=== PATIENT | male | born 1935 | race Caucasian/White ===

== ENCOUNTER → 2017-02-04 | Outpatient (CLI) | payer MEDICARE ==
[~2017-02-04] MED LIST: AMARYL4 MG PO; ANTI-DIARRHEA2 MG PO; ANTIVERT25 MG PO; AQUAPHOR1 OI1 TP; BACTROBAN OINT0.9 GM NAS; Bactroban Oint22 GM T; CALCIUM500 M1 PO; CARTIA XT180 MG PO; CASODEX50 MG PO; CEFUROXIME AXE250 MG PO; CHLORASEPTIC SP20 M1 T; CIPRO500 MG PO; D3-55000 IU PO; DO NOT PROFILE T1 EA DEN; DO NOT PROFILE T1 EA PO; DUONEB 3 MG/3 ML3 M1 NEB; EXELON3 MG PO; EXELON4.6 MG/24 T; EYE DROPS OP; EYE INJECTIONS OP; FLORASTOR250 MG PO; GLYBURIDE AND M1 TA1 PO; GLYBURIDE5 MG PO; HALOPERIDOL1 MG PO; JANUVIA25 MG PO; LANOXIN0.125 MG PO; MEGACE 40400 MG/10 PO; MEGACE40 MG PO; METFORMIN1000 MG PO; METOPROLOL25 MG PO; MIRTAZAPINE15 M2 PO; MULTIPLE VITAMI1 TAB PO; Metformin Hydr500 MG PO; NYSTATIN1 EAC1 MC; NYSTATIN100000 U/M PO; PERCOCET 325 MG1 TA7 PO; PREDNISONE5 MG PO; TYLENOL325 M2 PO; VICODIN ES 7501 TAB PO; XARE20MG PO; XARELTO10 MG PO; ZANTAC 150150 MG PO; ZOFRAN8 M1 PO; ZYPREXA5 M1 PO; [UNRECOGNIZED DRUG - OTHER] TP
== END | disposition home or self-care (01) ==
LOC: LAB 09:56
DX: C61 Malignant neoplasm of prostate (principal)

== ENCOUNTER → 2017-03-04 | Outpatient (CLI) | payer MEDICARE | END | disposition home or self-care (01) | LOC: US 13:15 | DX: N28.1 Cyst of kidney, acquired (principal); K80.20 Calculus of gallbladder without cholecystitis without obstruction; N32.89 Other specified disorders of bladder; N28.9 Disorder of kidney and ureter, unspecified ==

== ENCOUNTER 2017-06-07 19:51 | Emergency (ER) | payer MEDICARE ==
[~2017-06-07] VITALS: Ht 162.5 cm; Wt 72.6 kg
[2017-06-07 20:54] LABS: BASO % 0.5 % (0.0-1.0); EOS # 0.2 10*3/uL (0.0-0.4); EOS % 3.1 % (1.0-4.0); HEMATOCRIT 35.9 % (42.0-52.0); HEMOGLOBIN 12.6 g/dl (14.0-18.0); LYMPH # 3.1 10*3/uL (1.3-4.4); LYMPH % 40.1 % (27.0-41.0); MEAN CELL VOLUME 89.3 fl (80.0-94.0); MEAN CORPUSCULAR HGB 31.3 pg (27.0-31.0); MEAN CORPUSCULAR HGB CONC 35.1 g/dl (33.0-37.0); MEAN PLATELET VOLUME 8.9 fl (9.6-12.3); MONO # 0.7 10*3/uL (0.1-1.0); MONO % 9.2 % (3.0-9.0); NEUT # 3.7 10*3/uL (2.3-7.9); PLATELET COUNT AUTOMATED 227 10*3/uL (130-400); RED BLOOD COUNT 4.02 10*6/uL (4.50-5.90); RED CELL DISTRI WIDTH 13.2 % (0-14.5); WHITE BLOOD COUNT 7.8 10*3/uL (4.8-10.8)
[2017-06-07 21:12] LABS: BUN 32 mg/dl (7-24); CHLORIDE 108 mmol/L (98-107); CREATININE 2.23 mg/dL (0.70-1.30); POTASSIUM 4.6 mmol/L (3.5-5.1); SODIUM 139 mmol/L (136-145)
[2017-06-07 21:17] LABS: TROPONIN I < 0.015 ng/ml (<0.045)
[2017-06-07 21:44] VITALS: BP 137/66
== END 2017-06-07 22:05 | disposition home or self-care (01) ==
LOC: ED 19:51
PROVIDERS: Emergency Medicine Emergency Medical Services
DX: T46.1X1A Poisoning by calcium-channel blockers, accidental (unintentional), initial encounter (principal); Z86.73 Personal history of transient ischemic attack (TIA), and cerebral infarction without residual deficits; Z79.899 Other long term (current) drug therapy; Y92.9 Unspecified place or not applicable

== ENCOUNTER → 2017-09-22 | Outpatient (CLI) | payer MEDICARE | END | disposition home or self-care (01) | LOC: LAB 11:03 | DX: C61 Malignant neoplasm of prostate (principal) ==

== ENCOUNTER → 2018-03-14 | Outpatient (CLI) | payer MEDICARE ==
[2018-03-14 07:31] LABS: BASO % 0.2 % (0.0-1.0); EOS # 0.3 10*3/uL (0.0-0.4); EOS % 3.4 % (1.0-4.0); HEMATOCRIT 39.8 % (42.0-52.0); HEMOGLOBIN 13.5 g/dl (14.0-18.0); LYMPH # 3.1 10*3/uL (1.3-4.4); LYMPH % 37.9 % (27.0-41.0); MEAN CELL VOLUME 93.9 fl (80.0-94.0); MEAN CORPUSCULAR HGB 31.8 pg (27.0-31.0); MEAN CORPUSCULAR HGB CONC 33.9 g/dl (33.0-37.0); MEAN PLATELET VOLUME 9.2 fl (9.6-12.3); MONO # 0.8 10*3/uL (0.1-1.0); MONO % 9.3 % (3.0-9.0); PLATELET COUNT AUTOMATED 272 10*3/uL (130-400); RED BLOOD COUNT 4.24 10*6/uL (4.50-5.90); RED CELL DISTRI WIDTH 13.7 % (0-14.5); WHITE BLOOD COUNT 8.2 10*3/uL (4.8-10.8)
[2018-03-14 08:01] LABS: ALBUMIN 4.3 gm/dl (3.1-4.5); CREATININE 2.46 mg/dL (0.70-1.30); FREE T4 0.92 ng/dl (0.76-1.46); POTASSIUM 4.3 mmol/L (3.5-5.1); TOTAL PROTEIN 8.1 gm/dL (6.4-8.2)
[2018-03-14 08:06] LABS: THYROID STIM HORMONE (HS) 2.54 uIU/ml (0.358-4.75)
[2018-03-14 08:25] LABS: VITAMIN D, 25-HYDROXY 38.8 ng/mL (30-100)
== END | disposition home or self-care (01) ==
LOC: LAB 06:49
PROVIDERS: Internal Medicine
DX: E78.2 Mixed hyperlipidemia (principal); E55.9 Vitamin D deficiency, unspecified; E03.9 Hypothyroidism, unspecified; D52.9 Folate deficiency anemia, unspecified; D51.9 Vitamin B12 deficiency anemia, unspecified; R53.81 Other malaise

== ENCOUNTER → 2018-04-21 | Outpatient (CLI) | payer MEDICARE | END | disposition home or self-care (01) | LOC: LAB 09:46 | DX: C61 Malignant neoplasm of prostate (principal) ==

== ENCOUNTER → 2018-05-12 | Outpatient (CLI) | payer MEDICARE | END | disposition home or self-care (01) | LOC: NM 02:10 | DX: C61 Malignant neoplasm of prostate (principal); N18.9 Chronic kidney disease, unspecified ==

== ENCOUNTER → 2018-06-14 | Outpatient (CLI) | payer MEDICARE | END | disposition home or self-care (01) | LOC: LAB 09:57 | DX: C61 Malignant neoplasm of prostate (principal) ==

== ENCOUNTER → 2018-07-13 | Outpatient (CLI) | payer MEDICARE | END | disposition home or self-care (01) | LOC: LAB 10:47 | DX: Z12.5 Encounter for screening for malignant neoplasm of prostate (principal); C61 Malignant neoplasm of prostate ==

== ENCOUNTER → 2018-08-08 | Outpatient (CLI) | payer MEDICARE | END | disposition home or self-care (01) | LOC: LAB 10:00 | DX: C61 Malignant neoplasm of prostate (principal) ==

== ENCOUNTER → 2018-10-19 | Outpatient (CLI) | payer MEDICARE | END | disposition home or self-care (01) | LOC: LAB 13:00 | DX: C61 Malignant neoplasm of prostate (principal) ==

== ENCOUNTER → 2018-11-08 | Outpatient (CLI) | payer MEDICARE | END | disposition home or self-care (01) | LOC: LAB 11:50 | DX: C61 Malignant neoplasm of prostate (principal) ==

== ENCOUNTER → 2019-04-27 | Outpatient (CLI) | payer MEDICARE | END | disposition home or self-care (01) | LOC: LAB 11:05 | DX: C61 Malignant neoplasm of prostate (principal) ==

== ENCOUNTER 2019-05-31 17:59 | Inpatient (IN) | payer MEDICARE ==
[~2019-05-31] VITALS: Ht 170.2 cm; Wt 75.8 kg
[2019-05-31 18:04] VITALS: BP 131/79
[2019-05-31 18:40] VITALS: BP 135/82
[2019-05-31 18:44] LABS: BASO % 0.5 % (0.0-1.0); EOS # 0.3 10*3/uL (0.0-0.4); EOS % 5.1 % (1.0-4.0); HEMATOCRIT 42.1 % (42.0-52.0); HEMOGLOBIN 14.4 g/dl (14.0-18.0); LYMPH # 1.9 10*3/uL (1.3-4.4); LYMPH % 28.8 % (27.0-41.0); MEAN CELL VOLUME 94.4 fl (80.0-94.0); MEAN CORPUSCULAR HGB 32.3 pg (27.0-31.0); MEAN CORPUSCULAR HGB CONC 34.2 g/dl (33.0-37.0); MEAN PLATELET VOLUME 9.1 fl (9.6-12.3); MONO # 0.9 10*3/uL (0.1-1.0); MONO % 13.5 % (3.0-9.0); NEUT # 3.5 10*3/uL (2.3-7.9); NEUT % 51.8 % (47.0-73.0); PLATELET COUNT AUTOMATED 279 10*3/uL (130-400); RED BLOOD COUNT 4.46 10*6/uL (4.50-5.90); RED CELL DISTRI WIDTH 13.9 % (0-14.5); WHITE BLOOD COUNT 6.7 10*3/uL (4.8-10.8)
[2019-05-31 19:00] LABS: ALKALINE PHOSPHATASE 75 U/L (45-117); BUN 52 mg/dl (7-24); CHLORIDE 107 mmol/L (98-107); CREATININE 2.85 mg/dL (0.70-1.30); POTASSIUM 4.6 mmol/L (3.5-5.1); SGOT/AST 11 IU/L (3-35); SGPT/ALT 13 U/L (12-78); SODIUM 141 mmol/L (136-145); TOTAL PROTEIN 8.4 gm/dL (6.4-8.2)
[2019-05-31 19:01] LABS: TROPONIN I < 0.015 ng/ml (<0.045)
--- NOTE | 2019-05-31 19:02 | NUR ---
LAB CALLED LA 2.3
--- NOTE | 2019-05-31 21:02 | NUR ---
PT RESTING IN BED FAMILY IN ROOM NO DISTRESS NOTED CALL LIGHT IN REACH
[2019-05-31 21:30] VITALS: BP 127/70; BP 135/66
--- NOTE | 2019-05-31 21:30 | NUR ---
Time: 2129 A 84 year old MALE admitted to 5E under services of DR. ADAL NAYAK,DOMINIC Rebollar Pt. arrived via bed from ER. Chief complaint: WEAKNESS. WILIAN JARAMILLO
[2019-05-31] MEDS ORDERED: CHLORPROMAZINE25 M1 PO (21:53)
--- NOTE | 2019-06-01 00:05 | NUR ---
Pts third EKG held at this time. Nurse had just gotten pt to bed and pt tends to have sundowners. Would like pt to rest at this time.
--- NOTE | 2019-06-01 05:43 | NUR ---
NYASIA CHATTERJEE [id number] Please refer to the physician's history and physical for past medical history, comorbid conditions, and allergies. Diagnosis: ACUTE KIDNEY INJURY COMPRESSION FRACTURE OF L1 Madan Score: 14,MODERATE RISK WOUND DESCRIPTIONS: Wound Number: 1 Location of the wound: left forearm Type of wound: skin tear Thickness: Partial Size: 2.2cm x 0.6cm x 0.1cm Tunneling: none Undermining: none Sinus Tract: none Presence of Exudate: Serosanguineous Amount: Light Color: Red Odor: None Periwound Skin Appearance: Normal Wound edges: approximated Pain (associated with wound): none at time of assessment How does patient state this happened? pt unable to state how this happened Wound Number: 2 Location of the wound: right elbow Type of wound: scab Size: 2.2cm x 1.0cm x<0.1cm Tunneling: none Undermining: none Sinus Tract: none Presence of Exudate: none Amount: None Color: Brown Odor: None Periwound Skin Appearance: Normal Wound edges: approximated Pain (associated with wound): none at time of assessment How does patient state this happened? pt unsure how this happened Surface the patient is resting on: Isoflex SKIN PREVENTION RECOMMENDATION: 1. Pressure redistribution support surface as appropriate 2. Elevate heels 3. Remove boots/TEDS every shift and reapply 4. Head of bed 30 degrees as tolerated 5. Assess nutrition and hydration 6. Manage moisture 7. Avoid the use of containment devices while in bed 8. Use absorptive products on surfaces limit layers of linens on bed 9. Turn and reposition every 1-2 hours in bed and every 1 hour in chair as tolerated 10. Weight shifts every 15 minutes while up in chair 11. Offloading with pillows or device to keep heels elevated off bed 12. Monitor skin at least every shift 13. Inspect under medical devices twice a day WOUND TREATMENT RECOMMENDATIONS: Skin tear guidelines: Cleanse left forearm with nss and apply sureprep around the wound versatel to wound bed and apply hydrogel to wound bed and cover with optifoam gentle.
--- NOTE | 2019-06-01 06:43 | NUR ---
NOTIFIED DR. MCKEON OF NEW CONSULT. READ OFF LABS. DR. MCKEON INQUIRED ABOUT PATIENT HAVING SWELLING. NO EDEMA NOTED. DR. MCKEON INCREASED THE FLUIDS TO 80ML/HR. SHE ALSO ORDERED UA, URINE LYTES AND URINE CREATININE. NOTIFIED HER THAT PATIENT HAS PROSTATE PROBLEMS AND THAT HE IS OCCASIONALLY INCONTINENT. SHE ORDERED FOR THE PATIENT TO BE BLADDER SCANNED THIS MORNING. AND FOR A CBC AND BMP.
[2019-06-01 07:15] LABS: BASO % 0.3 % (0.0-1.0); EOS # 0.3 10*3/uL (0.0-0.4); EOS % 5.1 % (1.0-4.0); HEMATOCRIT 39.1 % (42.0-52.0); HEMOGLOBIN 13.5 g/dl (14.0-18.0); LYMPH # 1.9 10*3/uL (1.3-4.4); LYMPH % 30.8 % (27.0-41.0); MEAN CELL VOLUME 92.9 fl (80.0-94.0); MEAN CORPUSCULAR HGB 32.1 pg (27.0-31.0); MEAN CORPUSCULAR HGB CONC 34.5 g/dl (33.0-37.0); MONO # 0.8 10*3/uL (0.1-1.0); MONO % 13.1 % (3.0-9.0); NEUT % 50.4 % (47.0-73.0); PLATELET COUNT AUTOMATED 243 10*3/uL (130-400); RED BLOOD COUNT 4.21 10*6/uL (4.50-5.90); RED CELL DISTRI WIDTH 13.6 % (0-14.5)
[2019-06-01 07:28] LABS: CREATININE 2.53 mg/dL (0.70-1.30); POTASSIUM 3.9 mmol/L (3.5-5.1)
--- NOTE | 2019-06-01 07:30 | NUR ---
PATIENT BLADDER SCANNED AT THIS TIME FOR 161ML.
[2019-06-01 08:00] VITALS: BP 124/67
--- NOTE | 2019-06-01 08:13 | NUR ---
IN TO SEE PATIENT.
--- NOTE | 2019-06-01 08:53 | NUR ---
PATIENT RESTING QUIETLY IN BED. NO DISTRESS NOTED. ALERT/ORIENTED AT THIS TIME. IVF DECREASED TO 50/HR PER ORDER. NO VOICED COMPLAINTS. BED LOCKED AND IN LOWEST POSITION. BED ALARM MAINTAINED FOR SAFETY. WILL CONTINUE TO MONITOR. WITHIN VIEW OF NURSES STATION. CALL LIGHT WITHIN REACH.
--- NOTE | 2019-06-01 11:00 | NUR ---
Windows Server Architect in to talk to patient. Patient states lives at home with his . There are 11 steps in the home. Physician: Dr. Silvia Kennedy Pharmacy: [facility] [place] [facility]: has had in the past but not currently Patient's level of ADLs: independent per patient, moderate assistance per family Patient has working utilities: yes DME: none Follow-up physician's appointment after d/c: he prefers to make his own follow up appt after discharge Does patient want to access PORTAL?: no Discharge plan discussed with patient and his daughter who is at the bedside. He lives at home with his . He states he is normally independent in his ADLs and ambulation. Daughter states he needs moderate assistance with his ambulation as he has been falling at home an not telling anyone. Discussed short term SNF and home health care services and patient and daughter request this be discussed with the who will be in around 12:00-12:30 pm. Will follow up with the . metal engineering process worker following. Discharge plan undecided at this time. RICHELLE WONG
[2019-06-01 12:00] VITALS: BP 143/73
--- NOTE | 2019-06-01 12:32 | NUR ---
CALLED AT THIS TIME REGARDING PAIN MEDICATION ORDER. LEFT MESSAGE. AWAITING RETURN PHONE CALL.
--- NOTE | 2019-06-01 12:50 | NUR ---
RETURNED CALL. NEW ORDERS RECEIVED.
--- NOTE | 2019-06-01 12:52 | NUR ---
IN TO SEE PATIENT.
--- NOTE | 2019-06-01 13:43 | NUR ---
DIAL MOUNTER received call stating the patients wanted to speak with the DIAL MOUNTER. DIAL MOUNTER spoke with the who stated she was interested in a Hospice consult for the the patient. She stated that the patient has been declining and she does not feel he will improve. DIAL MOUNTER presented the patient with options for Hospice Companies. Patients was not sure which one to be referred if appropriate. She asked to speak with her daughter who is an employee at this facility. DIAL MOUNTER reached out to the patients daughter who stated she would think about it and let the DIAL MOUNTER know. Will need a Hospice Referral if appropriate. DIAL MOUNTER to follow. -LEONA Lindsay
--- NOTE | 2019-06-01 14:43 | NUR ---
PHYSICAL THERAPY Nursing screen received and chart reviewed. Physical therapy referral received. Thank you. Ely Duarte,PT,DPT
--- NOTE | 2019-06-01 14:48 | NUR ---
PT SLEEPING. NO DISTRESS NOTED. IVF MAINTAINED. FAMILY AT BEDSIDE. BED ALARM MAINTAINED FOR SAFETY.
[2019-06-01 16:00] VITALS: BP 135/70
--- NOTE | 2019-06-01 16:17 | NUR ---
Nursing screen received and chart reviewed. Patient admitted with increased dementia and decline at home with . Patient was doing well at home until the last few days he declined. Recommend OT referral for discharge planning. Thank you. Betty Gtz OTR/Isabel
[2019-06-01 20:00] VITALS: BP 117/78
[2019-06-02] VITALS: BP 130/62
[2019-06-02 08:00] VITALS: BP 140/74
--- NOTE | 2019-06-02 08:00 | NUR ---
Spoke to daughter, Michelle, regarding hospice. She would like to speak to her daughter who will be here at the hospital after she gets off of work which will be about 2pm. antique auto museum maintenance worker following.
[2019-06-02 08:11] LABS: BILIRUBIN NEGATIVE (NEGATIVE); BLOOD 2+ (NEGATIVE); CLARITY CLOUDY (CLEAR); COLOR YELLOW (YELLOW); GLUCOSE NEGATIVE (NEGATIVE); KETONE NEGATIVE (NEGATIVE); LEUKO ESTERASE 3+ (NEGATIVE); NITRITE NEGATIVE (NEGATIVE); UROBILINOGEN 0.2 E.U./dl (0.2-1.0)
[2019-06-02 08:32] LABS: URINE CREATININE RANDOM 54.2 mg/dL
[2019-06-02 09:10] LABS: CREATININE 2.35 mg/dL (0.70-1.30); POTASSIUM 3.9 mmol/L (3.5-5.1)
[2019-06-02 09:15] LABS: WBC TNTC wbc/hpf (0-5)
--- NOTE | 2019-06-02 10:25 | NUR ---
PHYSICAL THERAPY Awaiting family discussion about hospice care at 2pm. Will attempt PT evaluation at a later date if needed. Thank you. Ely Duarte,PT,DPT
--- NOTE | 2019-06-02 12:43 | NUR ---
Nutritional Support Services Note: Appetite is poor for meals, eating 20% most meals. Regular diet as ordered with Ensure po TID with meals. Skin tear noted to left forearm. Staff to encourage po intake of all meals and supplements. Staff to assist with meals as needed. Ht.5'7 Wt.167#. No other nutrition intervention needed at this time. Vivian Stoddard Rdn Ld
--- NOTE | 2019-06-02 14:25 | NUR ---
Discussed with Dr. Kennedy family would like to have [facility]. New orders received.
--- NOTE | 2019-06-02 15:27 | NUR ---
MOLD SHIFTER was contacted by [facility] stating they will be meeting with the family at 8pm this evening. Will notify Work Event Decorator. -LEONA Lindsay
[2019-06-02 16:00] VITALS: BP 122/73
--- NOTE | 2019-06-02 20:01 | NUR ---
24 HR chart check completed.
--- NOTE | 2019-06-02 20:15 | NUR ---
HOSPICE NURSE ANEESH HERE TO ASSESS PATIENT AND DISCUSS TREATMENT PLAN WITH FAMILY. QUESTIONS/CONCERNS DISCUSSED
--- NOTE | 2019-06-02 21:00 | NUR ---
RESTING IN BED WITH NO DISTRESS NOTED. RESPIRATIONS EASY. LUNGS DIMINISHED, CLEAR. PULSE OX 95% RA. IV FLUIDS INFUSING PER ORDER. CALL LIGHT WITHIN REACH. NO VOICED COMPLAINTS. BED ALARM MAINTAINED FOR SAFETY
[2019-06-03] VITALS: BP 128/67
--- NOTE | 2019-06-03 | NUR ---
SLEEPING. NO DISTRESS NOTED. RESPIRATIONS EASY. VSS. IV FLUIDS MAINTAINED. CALL LIGHT WITHIN REACH. BED ALARM MAINTAINED FOR SAFETY
--- NOTE | 2019-06-03 06:00 | NUR ---
SLEPT THROUGHOUT NIGHT WITH NO DISTRESS NOTED. RESPIRATIONS EASY. IV FLUIDS MAINTAINED. CALL LIGHT WITHIN REACH. NO VOICED COMPLAINTS THIS SHIFT
[2019-06-03 07:38] LABS: BASO % 0.4 % (0.0-1.0); EOS # 0.3 10*3/uL (0.0-0.4); EOS % 3.7 % (1.0-4.0); HEMOGLOBIN 13.8 g/dl (14.0-18.0); LYMPH # 2.4 10*3/uL (1.3-4.4); LYMPH % 28.1 % (27.0-41.0); MEAN CORPUSCULAR HGB 31.7 pg (27.0-31.0); MEAN CORPUSCULAR HGB CONC 33.7 g/dl (33.0-37.0); MEAN PLATELET VOLUME 9.5 fl (9.6-12.3); MONO % 12.2 % (3.0-9.0); NEUT # 4.7 10*3/uL (2.3-7.9); NEUT % 55.4 % (47.0-73.0); PLATELET COUNT AUTOMATED 296 10*3/uL (130-400); RED BLOOD COUNT 4.36 10*6/uL (4.50-5.90); RED CELL DISTRI WIDTH 13.9 % (0-14.5); WHITE BLOOD COUNT 8.4 10*3/uL (4.8-10.8)
[2019-06-03 07:55] LABS: CREATININE 2.06 mg/dL (0.70-1.30); POTASSIUM 3.9 mmol/L (3.5-5.1)
[2019-06-03 08:00] VITALS: BP 148/66
--- NOTE | 2019-06-03 11:00 | NUR ---
PHYSICAL THERAPY PT EVAL COMPLETED ON LEVEL 5: FULL EVALUATION TO FOLLOW. RECOMMEND PT WHILE HERE TO ADDRESS DECREASED STRENGTH, ENDURANCE, BALANCE AND FUNCTIONAL MOBILITY. SPOKE WITH NURSING TODAY AND SHE STATES FAMILY IS CONSIDERING HOSPICE WHEN HE GOES HOME BUT HE IS NOT HOSPICE HERE AND THAT SHE FEELS THE FAMILY WOULD WANT HIM TO HAVE SOME THERAPY. BASED ON EVALUATION PATIENT WAS WILLING TO ACTIVELY PARTICIPATE AND DID WELL. PT EVAL IS MODERATE COMPLEXITY: [id number]. D/C RECOMMENDATIONS ARE HOME WITH FAMILY SUPPORT AND HOSPICE IF THEY CHOOSE. THANK YOU FOR REFERRAL [facility]
[2019-06-03 16:00] VITALS: BP 132/67
[2019-06-03 20:00] VITALS: BP 137/76
--- NOTE | 2019-06-03 22:00 | NUR ---
LIDOCAINE PATCH REMOVED AT THIS TIME
[2019-06-04] VITALS: BP 140/72; BP 146/92
--- NOTE | 2019-06-04 01:10 | NUR ---
24 HR chart check completed.
--- NOTE | 2019-06-04 02:30 | NUR ---
PATIENT SLEEPING. IV FLUIDS INFUSING. NO S/S OF DISTRESS WILL MONITOR
[2019-06-04 08:00] VITALS: BP 90/40
[2019-06-04 13:27] VITALS: BP 106/52
[2019-06-04 16:00] VITALS: BP 120/69
[2019-06-04 20:00] VITALS: BP 169/78
--- NOTE | 2019-06-04 20:00 | NUR ---
IN TO ASSESS PATIENT. PATIENT ALERT AND ORIENTED X2. COOPERATIVE. PLEASANT. DIMINSIHED LUNGS T/O. IV FLUIDS INFUSING. NORMOACTIVE BOWELS X4 QUADS. PATIENT WITH STEADY GAIT TO BATHROOM WITH ASSISTANCE. NO EDEMA NOTED. DENIES CP, DENIES SOB. ROOM AIR. CALL LIGHT WITHIN REACH, WILL MONITOR
--- NOTE | 2019-06-04 22:00 | NUR ---
LIDOCAINE PATCH REMOVED AT THIS TIME
--- NOTE | 2019-06-04 23:50 | NUR ---
PATIENT SLEEPING. IV FLUIDS INFUSING PER ORDER. NO SIGNS OF DISTRESS NOTED. CALL LIGHT WITHIN REACH, WILL MONITOR
[2019-06-05] VITALS: BP 131/67
--- NOTE | 2019-06-05 01:26 | NUR ---
24 HR chart check completed.
--- NOTE | 2019-06-05 02:11 | NUR ---
PRN THORAZINE GIVEN FOR PT HICCUPING. CALL LIGHT WITHIN REACH, WILL MONITOR
--- NOTE | 2019-06-05 03:00 | NUR ---
PRN MEDICATION EFFECTIVE PER PT
--- NOTE | 2019-06-05 06:37 | NUR ---
Recommend follow up for wound care in outpatient setting patient refused at this time.
[2019-06-05 06:56] LABS: BASO % 0.4 % (0.0-1.0); EOS # 0.3 10*3/uL (0.0-0.4); EOS % 4.2 % (1.0-4.0); HEMATOCRIT 37.5 % (42.0-52.0); HEMOGLOBIN 12.8 g/dl (14.0-18.0); LYMPH # 2.1 10*3/uL (1.3-4.4); LYMPH % 30.5 % (27.0-41.0); MEAN CELL VOLUME 92.4 fl (80.0-94.0); MEAN CORPUSCULAR HGB 31.5 pg (27.0-31.0); MEAN CORPUSCULAR HGB CONC 34.1 g/dl (33.0-37.0); MEAN PLATELET VOLUME 9.3 fl (9.6-12.3); MONO # 0.9 10*3/uL (0.1-1.0); MONO % 12.6 % (3.0-9.0); NEUT # 3.6 10*3/uL (2.3-7.9); PLATELET COUNT AUTOMATED 248 10*3/uL (130-400); RED BLOOD COUNT 4.06 10*6/uL (4.50-5.90); RED CELL DISTRI WIDTH 13.7 % (0-14.5); WHITE BLOOD COUNT 6.9 10*3/uL (4.8-10.8)
[2019-06-05 07:01] LABS: ALBUMIN 3.3 gm/dl (3.1-4.5); CREATININE 1.77 mg/dL (0.70-1.30); POTASSIUM 3.9 mmol/L (3.5-5.1); TOTAL PROTEIN 7.3 gm/dL (6.4-8.2)
[2019-06-05 08:00] VITALS: BP 116/97
--- NOTE | 2019-06-05 08:15 | NUR ---
PHYSICAL THERAPY Patient seen this am 1:1 for therapy visit and was supine in bed upon therapist arrival. Patient identified by name / , reporting no c/o's pain, and transfers supine to sit EOB with CGA x 1. Patient completed sit to stand transfer MIN A and ambulated CARDROOM SUPERVISOR/MIN, continuos IV treatment, around bed to bedside chair, 20'x 1. Patient demonstrated increased unsteady gait pattern and is very impulsive. Patient needed v/c to focus on task to reduce risk of falling and remained in bedside chair with call light, tray table and body alarm as breakfast arrived. Will continue per POC as tolerated, total treatment time 13 minutes. Billy Avila, ENVIRONMENTAL AIDE
[2019-06-05] MEDS ORDERED: CEFUROXIME AXE250 MG PO (08:39)
--- NOTE | 2019-06-05 09:12 | NUR ---
Spoke to daughter, Michelle, she will be here at the hospital in about an hour. [facility] needs to set equipment up at home prior to discharge. collection systems worker notified.
--- NOTE | 2019-06-05 11:03 | NUR ---
CORPORATE SCHEDULER spoke to the patients daughter who stated she has not signed any consent forms with [facility] yet, she was waiting to talk to the rest of her family. CORPORATE SCHEDULER spoke with Kellie at [facility] who stated that the patient is appropriate and they can admit him once he is home. Kellie stated they could have an RN there to admit him to [facility] between 3:00pm and 3:30pm. Patient daughter confirmed this time frame would work. Patients daughter would like him discharged as soon as possible as she plans to tranpsort him home on her own with help from family. CORPORATE SCHEDULER notified Garth. -LEONA Lindsay
--- NOTE | 2019-06-07 07:49 | NUR ---
PHYSICAL THERAPY CO-SIGN I approve of the Physical Therapy notes written above. RICHELLE RUIZ PT,DPT
== END 2019-06-05 11:03 | disposition hospice, home (50) | DRG 91 ==
LOC: ED 17:59 → EDHOLD 20:55 → 5E 20:55
PROVIDERS: Emergency Medicine; Internal Medicine Nephrology; ADMIT Internal Medicine
DX: G72.81 Critical illness myopathy (principal); N17.0 Acute kidney failure with tubular necrosis; N39.0 Urinary tract infection, site not specified; E87.2 Acidosis; M48.56XA Collapsed vertebra, not elsewhere classified, lumbar region, initial encounter for fracture; R19.7 Diarrhea, unspecified; R62.7 Adult failure to thrive; B96.1 Klebsiella pneumoniae [K. pneumoniae] as the cause of diseases classified elsewhere; G30.9 Alzheimer's disease, unspecified; F02.80 Dementia in other diseases classified elsewhere, unspecified severity, without behavioral disturbance, psychotic disturbance, mood disturbance, and anxiety; G89.29 Other chronic pain; R26.81 Unsteadiness on feet; N18.3 Chronic kidney disease, stage 3 (moderate); B96.20 Unspecified Escherichia coli [E. coli] as the cause of diseases classified elsewhere; I12.9 Hypertensive chronic kidney disease with stage 1 through stage 4 chronic kidney disease, or unspecified chronic kidney disease; C61 Malignant neoplasm of prostate; R06.6 Hiccough; B96.4 Proteus (mirabilis) (morganii) as the cause of diseases classified elsewhere; I48.91 Unspecified atrial fibrillation; E11.22 Type 2 diabetes mellitus with diabetic chronic kidney disease; Z87.442 Personal history of urinary calculi; Z94.7 Corneal transplant status; Z83.3 Family history of diabetes mellitus; Z98.42 Cataract extraction status, left eye; Z98.41 Cataract extraction status, right eye